=== PATIENT | female | born 1960 | race Caucasian/White ===

== ENCOUNTER 2018-01-21 13:05 | Emergency (ER) | payer BC ==
[~2018-01-21] VITALS: Ht 170.2 cm; Wt 120.2 kg
[2018-01-21] MEDS ORDERED: MOBIC15 MG PO (13:20)
[2018-01-21] MEDS ORDERED: ASPIR 8181 MG PO (13:20)
[2018-01-21] MEDS ORDERED: UNICOMPLEX M TA1 TA1 PO (13:20)
[2018-01-21] MEDS ORDERED: PRILOSEC 10MG C10 MG PO (13:20)
[2018-01-21 13:38] LABS: ABSOLUTE BASOPHILS 0.1 thou/uL (0.0-0.2); ABSOLUTE EOSINOPHILS 0.2 thou/uL (0.0-0.7); ABSOLUTE LYMPHOCYTES 2.2 thou/uL (0.8-5.3); ABSOLUTE MONOCYTES 0.6 thou/uL (0.0-1.2); ABSOLUTE NEUTROPHILS 5.8 thou/uL (1.6-8.1); BASOPHILS 1.2 %; EOSINOPHILS 2.1 %; HEMATOCRIT 44.9 % (37.0-47.0); HEMOGLOBIN 15.3 gm/dL (12.0-15.0); LYMPHOCYTES 24.6 %; MCH 31.6 pg (26.0-34.0); MCHC 34.1 g/dL (28.0-37.0); MCV 92.6 fL (80.0-100.0); MONOCYTES 6.6 %; MPV 8.6 fl. (7.2-11.1); NUCLEATED RBCS 0 /100WBC; PLATELET COUNT* 249 thou/uL (150-400); POLYS 65.5 %; RBC 4.85 mil/uL (4.20-5.00); RDW-CV 13.7 % (10.5-14.5); WBC 8.9 thou/uL (4.0-11.0)
[2018-01-21 13:49] LABS: ANION GAP 8 mmol/L (7-16); BUN 16 mg/dL (7-18); CALCIUM 8.6 mg/dL (8.5-10.1); CHLORIDE 104 mmol/L (98-107); CO2 30 mmol/L (21-32); CREATININE 0.7 mg/dL (0.6-1.3); GLUCOSE 104 mg/dL (70-99); POTASSIUM 3.4 mmol/L (3.5-5.1); SODIUM 142 mmol/L (136-145)
[2018-01-21 13:59] LABS: ALBUMIN 3.8 g/dL (3.4-5.0); ALKALINE PHOSPHATASE 110 U/L (46-116); LIPASE 99 U/L (73-393); NT-PRO BRAIN NAT PEPTIDE 88 pg/mL (<300); SGOT 16 U/L (15-37); SGPT 21 U/L (30-65); TOTAL BILIRUBIN 0.4 mg/dL (<0.1-1.0); TOTAL PROTEIN 7.4 g/dL (6.4-8.2); TROPONIN-I LEVEL <0.06 ng/mL (<0.06)
--- NOTE | 2018-01-21 16:38 | EKG ---
[place] [address] ELECTROCARDIOGRAM REPORT Name: CASH FREY Room: [facility]#: [id number] Admission: 01/21/18 Attend Phys: Discharge: Date of : 60 Report #: [id number] THIS REPORT FOR: //name// [facility] ED Test Date: 2018-01-21 Test Time: 13:10:49 Pat Name: CASH FREY Department: Room: Gender: F Theology Teacher: : 1960 Requested By: Garry Motta Order Number: [id number] MD: Gilmar Denny Measurements Intervals Spraggs Rate: 83 P: 47 GA: 125 QRS: 40 QRSD: 105 T: 47 QT: 390 QTc: 459 Interpretive Statements Sinus rhythm Premature ventricular complexes RSR' in V1 or V2, right VCD or RVH Repol abnrm suggests ischemia, anterolateral Baseline wander in lead(s) I No previous ECG available for comparison Electronically Signed On 01-21-2018 16:37:58 [employer]EM[employer] by Gilmar Denny [email or web address] <ELECTRONICALLY SIGNED> By: Gilmar Denny MD, [facility] 01/21/18 1637 1310 1310 Gilmar Denny MD, [facility] /EPI
[2018-01-21 16:59] VITALS: BP 146/72
--- NOTE | 2018-01-21 17:42 | EXE ---
[place] [address] STRESS ECHOCARDIOGRAM Name: CASH FREY Room: [facility]#: [id number] Admission: 01/21/18 Attend Phys: Discharge: 01/21/18 Date of : 60 Date of Service: 01/21/18 1741 Report #: [id number] THIS REPORT FOR: //name// APPROVED REPORT Exam: Stress Echocardiogram Indication: Chest pain Patient Location: ER Stress Nurse: Radha Spaulding RN Supervising Physician: Gilmar Denny MD Ht: 5 ft 7 in HR: 65 bpm BP: 142/74 mmHg Medical History Cardiac Risk Factors: Tobacco History (Current/Recent) Procedure The patient underwent an Exercise Stress Test using the Jones Protocol. Blood pressure, heart rate, and EKG were monitored. An Echocardiogram was performed by electronic service technician in four stages in quad fashion. At peak stress, four selected images were obtained and placed side by side with resting images for comparison. Stress Test Details Stress Test: Exercise stress testing was performed using a Jones protocol. HR Resting HR: 65 bpm Max Heart Rate (APMHR): 163 bpm Max HR Achieved: 160 bpm Target HR (85% APMHR): 138 bpm % of APMHR: 98 Recovery HR: 86 bpm HR response to stress: Normal HR response to stress BP Resting BP: 142/74 mmHg Max BP: 174/89 mmHg Recovery BP: 143/85 mmHg ECG Resting ECG: Sinus Rhythm, normal EKG Stress ECG: Sinus Tachycardia ST Change: none Arrhythmia: None Recovery ECG: Sinus Rhythm, [place] [address] STRESS ECHOCARDIOGRAM Name: CASH FREY Room: [facility]#: [id number] Admission: 01/21/18 Attend Phys: Discharge: 01/21/18 Date of : 60 Date of Service: 01/21/18 1741 Report #: [id number] Recovery ST Change: none Recovery Arrhythmia: None Clinical Reason for Termination: Completed protocol, Dyspnea Exercise duration: 6 min sec Highest Stage Achieved: Stage 2: 2.5 mph at 12% grade. Exercise capacity: 7.05 METs The patient had no chest discomfort with exercise stress. Stress ECG Conclusion The baseline 12-lead electrocardiogram shows normal sinus rhythm with no significant ST or T wave abnormality. EKGs obtained during and post exercise showed sinus rhythm and sinus tachycardia with no significant ST or T wave changes when compared to baseline. There were no stress-induced arrhythmias. Pre-Stress Echo The resting Echocardiogram showed normal left ventricular contractility with an estimated Ejection Fraction of about 60-65%. Post-Stress Echo The stress Echocardiogram showed normal left ventricular contractility with an estimated Ejection Fraction of about >70%. Conclusion Clinical Response: Non-ischemic Exercise Capacity: Average Stress ECG Response: Non-ischemic Stress Echo Images: Non-ischemic The left ventricle is normal in size and wall thickness in both the rest and stress images., Stress echocardiogram shows no evidence of stress-induced ischemia. There is normal augmentation of left ventricular systolic function with exercise stress. This is a low risk study. No prior study available for comparison. Other Information Study Quality: Good <Conclusion> The left ventricle is normal in size and wall thickness in both the rest and stress images., Stress echocardiogram shows no evidence of stress-induced ischemia. There [place] [address] STRESS ECHOCARDIOGRAM Name: TEJARMANDOCASH Maxx Room: [facility]#: [id number] Admission: 01/21/18 Attend Phys: Discharge: 01/21/18 Date of : 60 Date of Service: 01/21/181740 Report #: [id number] ventricular systolic function with exercise stress. This is a low risk study. <ELECTRONICALLY SIGNED> By: Gilmar Denny MD, FACC 01/21/181740 40 40 Gilmar Denny MD, FACC /INF
== END 2018-01-21 16:59 | disposition home or self-care (01) ==
LOC: M.ERS 13:05
PROVIDERS: Emergency Medicine
DX: R00.2 Palpitations (principal); K21.9 Gastro-esophageal reflux disease without esophagitis; M19.90 Unspecified osteoarthritis, unspecified site; Z90.710 Acquired absence of both cervix and uterus; Z98.890 Other specified postprocedural states